=== PATIENT | female | born 2000 | race Caucasian/White ===

== ENCOUNTER 2022-09-12 08:44 | Emergency (ER) | payer SELFPAY ==
[~2022-09-12] VITALS: Ht 165.1 cm; Wt 54.4 kg
--- NOTE | 2022-09-12 08:50 | NUR ---
RIGHT INDEX RING SAFELY CUT USING RING CUTTER BY EMT.
[2022-09-12 08:53] VITALS: BP 111/68
--- NOTE | 2022-09-12 08:54 | NUR ---
THE PATIENT BIBS FOR RING STUCK TO R INDEX FINGER CAUSING PAIN, UNABLE TO TAKE IT OFF. RATES PAIN 3/10. WILL CONTINUE TO MONITOR THE PATIENT.
--- NOTE | 2022-09-12 09:10 | NUR ---
Patient discharged to home in stable condition. Written and verbal after care instructions given. Patient verbalizes understanding of instruction.
== END 2022-09-12 09:11 | disposition home or self-care (01) ==
LOC: ER 08:54
DX: M79.644 Pain in right finger(s) (principal)